=== PATIENT | male | born 1970 | race African-American/Black ===

== ENCOUNTER 2016-11-09 07:46 | Emergency (ER) | payer MEDICAID ==
[2016-11-09] MEDS ORDERED: KETOROLAC 60 MG/2 ML VIAL IM STA (08:26)
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
--- NOTE | 2016-11-09 09:08 | XR ---
Lumbar spine HISTORY: Pain, lifting injury 3 views of the lumbar spine Lumbar vertebral bodies show preserved height, alignment, bone mineralization. Some loss of disc heig ht L5-S1. Remainder medullary ribs at L1. IMPRESSION: Mild degenerative disc disease. Consider lumbar MRI
[2016-11-09] MEDS ORDERED: HYDROmorphone 1 MG/ML 1 ML SYRINGE IVP STA (09:36)
[2016-11-09] MEDS ORDERED: HYDROmorphone 1 MG/ML 1 ML SYRINGE IM STA (09:39)
[2016-11-09 09:55] VITALS: BP 109/63; PULSE 77; RESP 18; TEMP 96.9
== END 2016-11-09 09:55 | disposition home or self-care (01) ==
LOC: EC 07:46
DX: M54.16 Radiculopathy, lumbar region (principal); F17.200 Nicotine dependence, unspecified, uncomplicated; X50.0XXA Overexertion from strenuous movement or load, initial encounter
CPT/HCPCS: 96372 ×3; 99283 ×2; 72100; J1885; J1170